=== PATIENT | male | born 1990 | race Hispanic/Latino ===

== ENCOUNTER 2018-09-25 13:35 | Observation (INO) | payer OTHER ==
[~2018-09-25 13:35] MED LIST: ISOVUE-370 76%-LOCM 1 ML ONE
[2018-09-25 14:02] LABS: #Lymphocytes 2.2 thou/uL (1.20-3.40); #Monocytes 0.4 thou/uL (0.11-0.59); #Neutrophils 4.6 thou/uL (1.40-6.50); %Basophils 0.7 % (0.0-1.0); %Eosinophils 0.7 % (0.0-10.0); %Lymphocytes 30.5 % (21.0-51.0); %Monocytes 5.1 % (0.0-10.0); %Neutrophils 63.1 % (42.0-75.0); Hemoglobin 15.2 g/dL (14.0-18.0); Mean Corpuscular HGB CONC 33.7 g/dL (32.0-36.0); Mean Corpuscular Hemoglobin 29.6 pg (27.0-31.0); Mean Corpuscular Volume 87.7 fL (78.0-98.0); Platelet Count 270 thou/uL (130-400); RBC Distribution Width 11.3 % (11.5-14.5); Red Blood Cell (RBC) Count 5.12 mill/uL (4.70-6.10); White Blood Cell (WBC) Count 7.3 thou/uL (4.8-10.8)
[2018-09-25 14:24] LABS: ALT (SGPT) 19 U/L (8-55); AST (SGOT) 18 U/L (5-34); Albumin 4.8 g/dL (3.5-5.0); Alkaline Phosphatase 77 U/L (40-150); Anion Gap 13 mmol/L (10-20); BUN (Urea Nitrogen) 13 mg/dL (8.9-20.6); Calc. Creatinine Clearance 0 mL/min (70-130); Calcium 9.4 mg/dL (7.8-10.44); Carbon Dioxide 27 mmol/L (22-29); Chloride 103 mmol/L (98-107); Estimated GFR-MDRD 87; Globulin 3.1 g/dL (2.4-3.5); Glucose 95 mg/dL (70-105); Lipase 24 U/L (8-78); Potassium 3.9 mmol/L (3.5-5.1); Protein, Total 7.9 g/dL (6.0-8.3); Sodium 139 mmol/L (136-145)
--- NOTE | 2018-09-25 15:57 | CT ---
EXAM: CT ABDOMEN AND PELVIS HISTORY: Left lower quadrant pain, x3 days COMPARISON: None. Procedure: Multiple contiguous axial images were obtained and a CT of the abdomen and pelvis with IV contrast. C oronal reformats were performed. FINDINGS: Lower Chest: within normal limits. Vessels: Normal caliber aorta Heart: Normal heart size. No pericardial fluid Abdomen: Portal vein:Patent Gallbladder: No calcified gallstones. Normal caliber wall. Liver: within normal limits. Pancreas: within normal limits. Spleen: within normal limits. Adrenals: within normal limits. Kidneys: within normal limits. Peritoneum: No ascites or free air, no fluid collection. Bowel: Multiple normal caliber small bowel loops. Ileocecal junction is unremarkable. Appendix is nor mal caliber. Scattered fecal material in a nondistended, nondilated colon. Occasional diverticulum. There is pericolonic fat stranding involving the distal descending colon, compatible with epiploic ap pendagitis. No associated perforation or abscess. Evaluation of the alimentary canal is limited by the lack of oral contrast. Mesentery and Retroperitoneum: No enlarged mesenteric or retroperitoneal lymph nodes. Abdominal Wall: within normal limits. Pelvis: Reproductive Organs: No pelvic masses. Pelvis: within normal limits. Bladder: within normal limits. Bones: within normal limits. IMPRESSION: Epiploic appendagitis involving the descending colon.
[2018-09-25 16:10] LABS: Bilirubin Negative (Negative); Blood, Urine Negative (Negative); Clarity CLEAR (Clear); Glucose, Urine (Dipstick) Negative (Negative); Leukocyte Negative (Negative); Nitrite Negative (Negative); Protein, Urine (Dipstick) Negative (Neg-Trace); Specific Gravity, Urine 1.034 (1.002-1.036); Urobilinogen 0.2 mg/dL (0.2-1.0); pH, Urine 5.5 (5.0-9.0)
[2018-09-25] MEDS ORDERED: Ketorolac Tromethamine 30 MG/ML VIAL ONE (16:25)
[2018-09-25] MEDS: Sodium Chloride 0.9% 1,000 ML IV SCH (18:24)
[2018-09-25] MEDS: Ketorolac Tromethamine 30 MG/ML VIAL IVP SCH (18:25)
[2018-09-25 19:43] VITALS: BMI 26.6
[2018-09-26] MEDS ORDERED: Ketorolac Tromethamine 30 MG/ML VIAL ONE (05:13)
[2018-09-26] MEDS ORDERED: Ketorolac Tromethamine 30 MG/ML VIAL IVP PRN (09:33)
[2018-09-26] MEDS ORDERED: Sodium Chloride 0.9% 1,000 ML IV SCH (09:45)
[2018-09-26] MEDS: Ketorolac Tromethamine 30 MG/ML VIAL IVP SCH (10:16)
[2018-09-26] MEDS: Sodium Chloride 0.9% 1,000 ML IV SCH (10:16)
[2018-09-26 15:33] VITALS: BP 123/77; TEMP 98.2
--- NOTE | 2018-09-26 20:32 | HP ---
PRIMARY CARE PHYSICIAN: This patient has no PCP. CHIEF COMPLAINT: Abdominal pain in left lower quadrant. CODE STATUS: Full code. TIME OF EVALUATION: The patient was seen on 09/25/2018, at 9:00 p.m. HISTORY OF PRESENT ILLNESS: The patient is 28-year-old healthy patient, came to the hospital after having left lower quadrant pain for the past 3 days with no clear triggers, no alleviating factors. The patient's pain has been gradually getting worse and has become severe. The patient had a CT scan and he was diagnosed with epiploic appendagitis. Dr. Rosenberg has been consulted. The patient overnight and resolved with supportive care, he could be discharged in the next couple of hours. REVIEW OF SYSTEMS: CONSTITUTIONAL: No fever, chills, or generalized weakness. RESPIRATORY: No cough, sputum production, or shortness of breath. CARDIOVASCULAR: No chest pain or palpitation. GASTROINTESTINAL: No nausea, vomiting, diarrhea. The patient has left lower quadrant abdominal pain as reported on the HPI. CH[employer]ER HOOKER: No dizziness, headache, or feeling lightheaded. GENITOURINARY: No burning on urination. EXTREMITIES: No leg swelling. All other systems were reviewed and negative except for the findings mentioned above. PAST MEDICAL HISTORY: Negative. SURGICAL HISTORY: [place] tooth 2016. FAMILY HISTORY: Reviewed and non contributory to current presentation. SOCIAL HISTORY: The patient drinks socially once a month. No drugs. No smoking history. He is at home alone. ALLERGIES: NO KNOWN DRUG ALLERGIES. REPORTED MEDICATIONS: None. PHYSICAL EXAMINATION: VITAL SIGNS: On presentation, blood pressure 134/78 with heart rate 71, respiratory rate was 16, temperature 97.8, pain was 2/10, oxygen saturation was 98% on room air GENERAL: The patient is alert, oriented, not in acute distress. HEENT: Eyes normal conjunctivae. Moist oral mucosa. Anicteric. No JVD. RESPIRATORY: Bilateral air entry. No rales or wheezes. Symmetric expansion. CARDIOVASCULAR: Normal rate. Regular rhythm. No murmurs. No gallop. No edema. ABDOMEN: Soft, tender especially in the left lower quadrant area. Bowel sounds are present. MUSCULOSKELETAL: Baseline range of motion and strength. SKIN: Warm, intact. No pallor. No rash. No redness. Capillary refill seems to intact. NEURO: No evidence of any new focal weakness. Cranial nerves seems to be intact. PSYCH: The patient is in good mood. No anxiety. Optimal judgment. DIAGNOSTIC DATA: Abdominal pelvic CT, the patient had epiploic appendagitis involving the ascending colon. Labs were reviewed. Hematology; white count 7.3, hemoglobin 15.2, MCV 87.7, platelet count 270. Chemistry; sodium 139, potassium 3.9, chloride 103, carbon dioxide 27, anion gap 13, BUN 13, creatinine 1.03, glucose 95. Lactic acid 0.6, calcium 9.4, total bilirubin 1.0. LFTs were negative. Albumin 4.8, globulin 3.1. Urine was done, was negative. ASSESSMENT AND PLAN: The patient will be placed in the hospital with following medical problems: 1. Left lower quadrant pain secondary to epiploic appendagitis, the patient has been started on antibiotics, IV fluids, pain management, Dr. Rosenberg will see the patient. We will follow recommendations. If everything remains stable, the patient may be able to be discharged soon. 2. Deep venous thrombosis prophylaxis. 3. Severe pain, needing opioid medication IV for optimal control, this place pt at high risk of complications from treatment. Job ID: [id number] MTDD
--- NOTE | 2018-09-26 21:27 | CON ---
DATE OF CONSULTATION: 09/26/2018 GENERAL SURGEON: Dr. Rosenberg. HISTORY OF PRESENT ILLNESS: The patient is a 28-year-old male who presented to the emergency department yesterday after abdominal tenderness. The patient was worked up in the emergency department and was found to have an epiploic appendicitis. He was admitted to the Medicine Service and General Surgery was consulted. The patient was seen at that time by Dr. Rosenberg and evaluated, reported that it was nonsurgical operative. The patient stayed overnight in the hospital under the care of the medicine team. He denied nausea, vomiting, or diarrhea. REVIEW OF SYSTEMS: All additional 10-point review of systems negative except as indicated above. PAST MEDICAL HISTORY: None. PAST SURGICAL HISTORY: None. SOCIAL HISTORY: The patient denies tobacco or drug use. Does drink alcohol occasionally. MEDICATIONS: None. ALLERGIES: NO KNOWN DRUG ALLERGIES. PHYSICAL EXAMINATION: VITAL SIGNS: Temperature 98.4, pulse 88, respirations 14, oxygen saturation 98% on room air, blood pressure 131/82. GENERAL: Well-appearing young male, sitting up in bed with no signs of acute distress. RESPIRATORY: Equal chest rise and fall. Clear breath sounds bilaterally. No signs of acute respiratory distress. CARDIAC: Regular rate and rhythm. No murmurs, gallops, or rubs. GI: Abdomen is soft, nontender, nondistended. EXTREMITIES: 2+ pulses in all extremities. No significant swelling noted. Gross motor and sensation are intact. NEURO: GCS is 15. Pupils are equal, round, and reactive to light bilaterally. LABORATORY FINDINGS: White count 7.3, hemoglobin 15.2, hematocrit 44.9, platelets 270. Sodium 134, potassium 3.9, chloride 103, carbon dioxide 27, BUN 13, creatinine 1.03, glucose 95, total bilirubin 1.0, AST 18, ALT 19. DIAGNOSTIC FINDINGS: CT of the abdomen and pelvis demonstrates epiploic appendicitis involving the descending colon. ASSESSMENT: Epiploic appendicitis. RECOMMENDATIONS: The patient is not a surgical candidate. Advance diet as tolerated. Pain control per primary service. Disposition per primary service. General Surgery to sign off. If any other questions or concerns were to arise, please reconsult. The patient was seen and examined by Dr. Rosenberg and myself today during rounds. Job ID: [id number]
== END 2018-09-26 15:10 | disposition home or self-care (01) ==
LOC: ERS 13:35 → SURG A 16:28
PROVIDERS: ADMIT Internal Medicine; ATTEND Internal Medicine
DX: K63.89 Other specified diseases of intestine (principal); K57.90 Diverticulosis of intestine, part unspecified, without perforation or abscess without bleeding
CPT/HCPCS: 36415; 74177; 80053; 81003; 83605; 83690; 85025; 96361; 96374; G0378; J1885; Q9966